=== PATIENT | male | born 1995 | race Caucasian/White ===

== ENCOUNTER → 2021-06-10 | Day surgery (SDC) | payer OTHER ==
[~2021-06-10] VITALS: Ht 180.3 cm; Wt 106.6 kg
[2021-06-10 09:00] VITALS: BP 139/78
[2021-06-10 13:28] VITALS: BP 139/78
--- NOTE | 2021-06-11 10:42 | O ---
[facility] [place] [address] OPERATIVE REPORT Name: ANTONETTE STARK Room #: [facility].#: [id number] Admission: 06/10/21 Attend Phys: Nelson Han MD Discharge: Date of : 89 Report #: [id number] THIS REPORT FOR: cc: MELISSA - Family physician unknown FAM - Family physician unknown Nelson Han MD ~ DATE OF SERVICE: 06/10/2021 SURGEON: Nelson Han MD SEEING EYE DOG TRAINER: Francisca Lemon NP INDICATIONS FOR SEEING EYE DOG TRAINER: Retraction, extremity and arthroscope management, assistance with suture passage and repair. PREOPERATIVE DIAGNOSES: 1. Left knee pain. 2. Left knee lateral meniscus tear. POSTOPERATIVE DIAGNOSES: 1. Left knee pain. 2. Left knee lateral meniscus tear. 3. 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 PROCEDURES: Left knee arthroscopic lateral meniscus repair. COMPLICATIONS: None. DRAINS: None. SPECIMENS: None. ANESTHESIA: General. FINDINGS: 1. Intact patellofemoral and medial compartments as well as ACL and PCL. 2. Near full-thickness radial tear of the mid substance of the lateral meniscus. 3. Lateral meniscus repair with [place] meniscal suture tape x 4 with outside-in technique. 4. Grade 2 and very mild grade 3 chondromalacia of the lateral tibial plateau. HISTORY: The patient is a 25-year-old gentleman with history of a left knee lateral meniscus tear that was sustained playing football. 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 He is having pain and symptoms secondary to this tear. It was a high-grade tear and I felt that repair was the most appropriate option. [facility] [address] [place] [address] OPERATIVE REPORT Name: ANTONETTE STARK Room #: [facility].#: [id number] Admission: 06/10/21 Attend Phys: Nelson Han MD Discharge: Date of : [birth year] Report #: [id number] We had initially scheduled him for a more timely repair, but he developed COVID infection and had to postpone for his overall health. Risks, benefits, alternatives and indications for surgery discussed with him in detail. Risks include but not limited to pain, bleeding, infection, injuring nerves or blood vessels, persistent pain despite surgical intervention, failure of any repairs, progression of preexisting chondral injury, stiffness, need for further surgery as well as complications related to anesthesia. Despite the risks, he wished to proceed. PROCEDURE IN DETAIL: After the left lower extremity was correctly identified in the preoperative holding area as the operative extremity, the patient was taken to the operating room. General anesthesia was induced without complications. He was padded appropriately. Prophylactic antibiotics were administered at appropriate time. A tourniquet was applied to left leg. Left lower extremity was then prepped and draped in standard sterile fashion. Timeout procedure performed. Esmarch was used, tourniquet inflated to 300 mmHg. Standard anterolateral viewing portal established followed by anteromedial working portal. Diagnostic arthroscopy revealed the above findings. The suprapatellar pouch, patellofemoral space, and medial compartments were evaluated and found to be stable, placed the patient in the [id number] position, the lateral compartment was evaluated both with the 30-degree scope in the lateral portal as well as the medial portal and then with the 70-degree scope in the medial portal as well. Most of the work on the repair was performed with the 70-degree arthroscope in the medial portal. After assessment of the repair, I brought the shaver in and performed a limited debridement. This was basically a near full-thickness radial tear at the mid body and went just to the meniscal parameter into the red-red zone. There was displacement in both the anterior and posterior horns just from the arthroscopy fluid pressure indicating this was a highly unstable tear. There was some adjacent chondromalacia that was addressed with the shaver and debrided to stable parameters. A 1-inch longitudinal incision was made based at the location of the tear, which I had localized with a spinal needle through the tear placed percutaneously. Dissection was taken down to the capsule and then I proceeded with repair utilizing a [facility] needle passage device. A total of 4 mattress sutures were placed with one limb placed through the posterior horn, one limb placed through the posterior body and one limb through the anterior body. There were 2 horizontal mattress sutures on the femoral side of the meniscus and 1 horizontal mattress suture on the tibial side of the meniscus. These all provide excellent stability and then I placed a 4th bridging the previous 3, as I reinforced rip-stop type of suture. With all 8 limbs passed and organized, the meniscus reduction was assessed, it was able to be reduced anatomically. I then placed the knee into extension for the suture repair and the repair was performed with a total of 4 [facility] meniscal suture tape devices. With the knee in extension, we progressively tied with the first femoral sided and then the [facility] [address] [place] [address] OPERATIVE REPORT Name: ANTONETTE STARK Room #: REG [facility] Denny#: [id number] Admission: 06/10/21 Attend Phys: Nelson Han MD Discharge: Date of : 97 Report #: [id number] tibial sided mattress sutures and then the second femoral sided suture and then a final 4th one was tied over the top. A secure repair was achieved. We placed the scope back into the knee and assessed the repair both in flexion at 90 degrees as well as near full extension, one we could still visualize and there was stability of the repair. I did use a meniscal biter to trim the inner rim in the white-white zone, particularly on the posterior horn side and was happy with the appearance at this point. The arthroscopic effusion was drained. Instruments removed. Portal sites were closed. Sterile dressing was applied. The patient was awakened from anesthesia and taken to recovery room in stable condition after a compression stocking and a hinged knee brace was applied. POSTOPERATIVE PROTOCOL: Nonweightbearing x 6 weeks. Hinged knee brace x 6 weeks. Range of motion 0-90 degrees x 6 weeks. He will also be taking aspirin for DVT prophylaxis, which was prescribed as well as instructed to his mother. <ELECTRONICALLY SIGNED> By: Nelson Han MD 06/11/21 [id number] Nelson Han MD /nt
== END | disposition home or self-care (01) ==
LOC: OR 08:20
PROVIDERS: ATTEND Orthopaedic Surgery Sports Medicine
DX: M25.562 Pain in left knee (principal); S83.282A Other tear of lateral meniscus, current injury, left knee, initial encounter; M94.262 Chondromalacia, left knee; Z98.890 Other specified postprocedural states; Z79.899 Other long term (current) drug therapy; X58.XXXA Exposure to other specified factors, initial encounter; Y93.89 Activity, other specified; Y92.89 Other specified places as the place of occurrence of the external cause; Y99.8 Other external cause status
CPT/HCPCS: 50010; 50101; 50405; 53337; 56524; 56527; 57103; 57180; 58589; 58680; 59024; 59131; 59181; 59182; 59183; 62110; 62900; 70005